=== PATIENT | male | born 1990 | race Caucasian/White ===

== ENCOUNTER 2018-12-25 12:40 | Emergency (ER) | payer BC, MEDICAID ==
[~2018-12-25] VITALS: Ht 182.9 cm; Wt 139.0 kg
[~2018-12-25 12:40] MED LIST: OMEP40CA37 PO
[2018-12-25 17:16] VITALS: BP 145/73
== END 2018-12-25 17:17 | disposition home or self-care (01) ==
LOC: ER 12:42
DX: T59.4X1A Toxic effect of chlorine gas, accidental (unintentional), initial encounter (principal); R51 Headache; H53.8 Other visual disturbances; R11.0 Nausea; R05 Cough; Z88.0 Allergy status to penicillin; Z79.899 Other long term (current) drug therapy; Y92.89 Other specified places as the place of occurrence of the external cause
CPT/HCPCS: 71046; 93005; 99283

== ENCOUNTER 2021-03-12 11:41 | Emergency (ER) | payer BC, OTHER ==
[~2021-03-12] VITALS: Ht 182.9 cm; Wt 133.6 kg
[~2021-03-12 11:41] MED LIST changes: +OMEP40CA21 PO; -OMEP40CA37 PO
[2021-03-12 12:23] VITALS: BP 118/73
[2021-03-12] MEDS ORDERED: dexamethasone sod phosphate 10mg/ml inj PO STA (13:28)
[2021-03-12] MEDS ORDERED: DEXA6TAB PO (13:30)
[2021-03-12] MEDS ORDERED: AZIT500T9 PO (13:44)
[2021-03-17] MEDS ORDERED: BENZ-16 PO (18:43)
[2021-03-17] MEDS ORDERED: ALBU8HFA PO (19:06)
== END 2021-03-12 13:47 | disposition home or self-care (01) ==
LOC: ER 11:41
DX: U07.1 COVID-19 (principal); Z88.0 Allergy status to penicillin; Z79.899 Other long term (current) drug therapy
CPT/HCPCS: 71045; 87635; 99284; C9803; J1100

== ENCOUNTER → 2021-03-17 | Emergency (ER) | payer BC ==
[~2021-03-17] VITALS: Ht 182.9 cm; Wt 130.9 kg
[~2021-03-17] MED LIST changes: +ALBU8HFA PO; +AZIT500T9 PO; +BENZ-16 PO; +DEXA6TAB PO
[2021-03-17 19:20] VITALS: BP 118/84
== END | disposition home or self-care (01) ==
LOC: ER 17:55
DX: U07.1 COVID-19 (principal); R06.02 Shortness of breath; R05 Cough; R50.9 Fever, unspecified; R53.1 Weakness; R53.83 Other fatigue; Z88.0 Allergy status to penicillin; Z79.2 Long term (current) use of antibiotics; Z79.899 Other long term (current) drug therapy
CPT/HCPCS: 71045; 99283